=== PATIENT | female | born 1990 | race Hispanic/Latino ===

== ENCOUNTER 2019-12-30 02:21 | Inpatient (IN) | payer MEDICAID ==
[2019-12-30] MEDS ORDERED: PROMETHAZINE 25 MG TAB PO PRN ×2 (03:20→15:58)
[2019-12-30] MEDS ORDERED: ACETAMINOPHEN 325 MG TAB PO PRN ×2 (03:20→15:58)
[2019-12-30] MEDS ORDERED: TERBUTALINE 1 MG/1 ML INJ SUB-Q PRN (03:20)
[2019-12-30] MEDS ORDERED: NALOXONE 0.4 MG/1 ML INJ IV PRN (03:20)
[2019-12-30] MEDS ORDERED: MINERAL OIL 30 ML ORAL LIQD PO PRN (03:20)
[2019-12-30] MEDS ORDERED: LIDOCAINE (2%) 20 MG/1 ML VIAL 20 ML MDV INFILTRATI ONE (03:20)
[2019-12-30] MEDS ORDERED: fentaNYL 100 MCG/2 ML INJ IV PRN (03:20)
[2019-12-30] MEDS ORDERED: BUTORPHANOL 2 MG/1 ML INJ IV PRN ×2 (03:20)
[2019-12-30] MEDS ORDERED: ONDANSETRON 4 MG/2 ML INJ IV PRN ×2 (03:20→15:58)
[2019-12-30] MEDS: LACTATED RINGERS 1,000 ML IV SCH ×3 (03:30→13:53)
[2019-12-30] MEDS ORDERED: miSOPROStol 25 MCG TAB PO SCH (04:00)
[2019-12-30 04:54] LABS: Hematocrit 33.3 % (30.3-42.9); Hemoglobin 11.7 gm/dl (10.1-14.3); Mean Corpuscular HGB Conc 35 % (30-34); Mean Corpuscular Volume 93 fl (79-97); Platelet Count 241 K/mm3 (140-440); Red Cell Distribution Width 13.1 % (13.2-15.2)
--- NOTE | 2019-12-30 06:33 | History and Physical Report ---
History of Present Illness Date of examination: 12/30/19 Date of admission: 12/30/19 03:21 Chief complaint: Water broke History of present illness: Pt is a 29 yo at 37w2d EGA who presents reporting rupture of membranes around 0030 today. She reports positive movement and mild contractions, and denies vaginal bleeding. She has received care with [facility] since 16 weeks EGA. Her course has been complicated by increased risk ONTD. She has a history of cardiac dysrhythmia in a prior . She is GBS negative. Past History Past Medical History: no pertinent history Past Surgical History: denies: section Social history: no significant social history - Obstetrical History Expected Date of Delivery: 01/15/20 Actual Gestation: 37 Week(s) 5 Day(s) : 2 Para: 1 Hx # Term Pregnancies: 1 Number of Living Children: 1 Medications and Allergies Allergies Allergy/AdvReac Type Severity Reaction Status Date / Time No Known Allergies Allergy Verified 12/30/19 03:35 Active Meds: Active Medications Acetaminophen (Tylenol) 650 mg PO Q4H PRN PRN Reason: Pain, Mild (1-3) Butorphanol Tartrate (Stadol) 1 mg IV Q2H PRN PRN Reason: Pain, Moderate(4-6) LABOR PAIN Butorphanol Tartrate (Stadol) 2 mg IV Q2H PRN PRN Reason: Pain , Severe (7-10) Ephedrine Sulfate (Ephedrine Sulfate) 10 mg IV Q2M PRN PRN Reason: Hypotension Fentanyl (Sublimaze) 100 mcg IV Q2H PRN PRN Reason: Pain,Severe (7-10) LABOR PAIN Lactated Ringer's (Lactated Ringers) 1,000 mls @ 125 mls/hr IV DIRECT BECKY Oxytocin/Sodium Chloride (Pitocin/Ns 20 Unit/1000ml Drip) 20 units in 1,000 mls @ 125 mls/hr IV DIRECT BECKY Mineral Oil (Mineral Oil) 30 ml PO QHS PRN PRN Reason: Constipation Misoprostol (Cytotec) 25 mcg PO Q4H BECKY Stop: 12/30/19 16:01 Naloxone HCl (Naloxone) 0.1 mg IV Q2MIN PRN PRN Reason: Res Rate </= 8 or 02 SAT < 92% Ondansetron HCl (Zofran) 4 mg IV Q8H PRN PRN Reason: Nausea And Vomiting Promethazine HCl (Phenergan) 25 mg PO Q6H PRN PRN Reason: Nausea And Vomiting Terbutaline Sulfate (Brethine) 0.25 mg SUB-Q ONCE PRN PRN Reason: Hyperstimulation/Hypertonicity Review of Systems All systems: negative Genitourinary: leakage of fluid, contractions, no vaginal bleeding - Vital Signs Vital signs: Vital Signs Pulse BP Pulse Ox 85 112/71 97 12/30/19 02:58 12/30/19 02:58 12/30/19 02:58 Temp Pulse Resp BP Pulse Ox 98.5 F 75 18 111/61 96 12/30/19 02:59 12/30/19 05:01 12/30/19 02:59 12/30/19 05:01 12/30/19 03:53 - Physical Exam Lungs: Positive: Normal air movement Abdomen: Positive: soft Uterus: Positive: enlarged (gravid) Extremities: Positive: normal - Obstetrical FHR: category 1 Cervical Dilatation: 1 (olga Pablo RN) Cervical Effacement Percentage: 50 station: -3 Uterine Contraction Frequency (min): 4 Uterine Contraction Pattern: Irregular Uterine Tone Measurement Phase: Contraction Uterine Contraction Intensity: Mild Results Result Diagrams: 12/30/19 04:05 Abnormal lab results 12/30/19 Range/Units 04:05 RBC 3.60 L (3.65-5.03) M/mm3 MCH 33 H (28-32) pg MCHC 35 H (30-34) % RDW 13.1 L (13.2-15.2) % All other labs normal. Assessment and Plan A: 29 yo at 37w5d EGA Prelabor rupture of membranes FHT category 1 GBS negative Screen positive ONTD with normal anatomy Considering BTL H/o cardiac dysrhythmia in prior P: Admit to L&D Cervical ripening- low dose Pitocin Anticipate
[2019-12-30] MEDS ORDERED: OXYTOCIN DRIP 30 UNITS/500 ML BAG IV SCH (07:00)
[2019-12-30] MEDS ORDERED: ePHEDrine SULFATE 50 MG/1 ML INJ IV PRN (14:32)
[2019-12-30] MEDS ORDERED: NALOXONE 2 MG/2 ML INJ IV PRN (14:32)
--- NOTE | 2019-12-30 14:33 | Anesthesia Consultation ---
Anesthesia Consult and Med Hx Date of service: 12/30/19 - Airway Anesthetic Teeth Evaluation: Good ROM Head & Neck: Adequate Mental/Hyoid Distance: Adequate Mallampati Class: Class II Intubation Access Assessment: Probably Good - Pulmonary Exam CTA: Yes - Cardiac Exam Cardiac Exam: RRR - Pre-Operative Health Status ASA Pre-Surgery Classification: ASA2 Proposed Anesthetic Plan: Epidural - Pulmonary Hx Asthma: No - Cardiovascular System Hx Hypertension: No - Central Nervous System Hx Seizures: No Hx Psychiatric Problems: No - Endocrine Hx Renal Disease: No Hx Hypothyroidism: No Hx Hyperthyroidism: No - Hematic Hx Anemia: No Hx Sickle Cell Disease: No - Other Systems Hx Alcohol Use: No
--- NOTE | 2019-12-30 14:56 | Progress Note ---
Labor Epidural - Labor Epidural Start Time: 14:39 Stop Time: 14:45 Performed by:: FILIPE DRAPER Procedure: Patient is requesting epidural for labor pain. H&P, and labs reviewed. Procedure explained, questions answered, consent obtained. Patient in sitting position with blood pressure cuff and pulse ox on and working. Timeout performed immediately before start of procedure. Sterile betadine prep/drape. 3 mL 1% lidocaine skin wheal at L[3]-L[4]. 18-gauge Touhy epidural needle advanced to [id number] with saline at [7] cm. Epidural dexmedetomidine [30] mcg administered. Epidural catheter advanced to [12] cm, negative aspiration for blood and csf, negative test dose 3 ml 1.5% lidocaine with epinephrine. Sterile steri-strips and tegaderm applied, followed by tape reinforcement. Patient tolerated procedure well.
[2019-12-30] MEDS ORDERED: fentaNYL-BUPIV 2 MCG/ML-0.125% 200 MCG/100 ML BAG EPIDURAL SCH (15:00)
[2019-12-30] MEDS: ePHEDrine SULFATE 50 MG/1 ML INJ IV PRN ×2 (15:05→15:18)
[2019-12-30] MEDS: OXYTOCIN 20 UNIT/1000ML DRIP 20 UNITS/1,000 ML BAG IV SCH ×2 (15:44→18:29)
[2019-12-30] MEDS ORDERED: WITCH HAZEL/ GLYCERIN PAD TP PRN (15:58)
[2019-12-30] MEDS ORDERED: LANOLIN/ZINC/DIMETHICONE (LANSINOH) 7 GM TP PRN (15:58)
[2019-12-30] MEDS ORDERED: PROMETHAZINE 25 MG RECT SUPP PR PRN (15:58)
[2019-12-30] MEDS ORDERED: MAGNESIUM HYDROXIDE (MOM) ORAL LIQD UDC PO PRN (15:58)
[2019-12-30] MEDS ORDERED: diphenhydrAMINE 25 MG CAP PO PRN (15:58)
--- NOTE | 2019-12-30 15:58 | Procedure Note ---
OB Delivery Note - Delivery Date of Delivery: 12/30/19 Surgeon: CYN CASTILLO Estimated blood loss: 100cc - Vaginal Delivery presentation: vertex Delivery position: OA Intrapartum events: mult. late decelerations Delivery monitor: external FHT, external uterine, internal FHT, internal uterine Route of delivery: Delivery placenta: spontaneous Delivery cord: 3 umbilical vessels Episiotomy: none Delivery laceration: none Anesthesia: epidural Delivery comments: The patient progressed to complete complete +1 and post to deliver a live-born male infant with Apgars of 8 and 9 weight 5 pounds 2 ounces after delivery of the head the shoulders delivered without difficulty. The was bulb suction and placed on the patient's abdomen. Cord clamping was delayed. The c ord was clamped and cut and the infant was then transferred to the warmer for further evaluation. The placenta delivered spontaneously intact with a three- vessel cord. No lacerations were noted. Estimated blood loss of 100 mL - A at 1 minute: 8 at 5 minutes: 9 Infant Gender: Male (Weight 5 pounds 2 ounces)
[2019-12-30] MEDS: IBUPROFEN 600 MG TAB PO SCH (22:19)
[2019-12-31] MEDS: IBUPROFEN 600 MG TAB PO SCH ×3 (04:41→18:04)
[2019-12-31 05:46] LABS: Hematocrit 32.1 % (30.3-42.9); Hemoglobin 11.4 gm/dl (10.1-14.3)
[2019-12-31] MEDS: HYDROcodone/ACETAMINOPHEN 5-325 MG TAB PO PRN ×3 (05:48→19:16)
[2019-12-31] MEDS ORDERED: DIPHtheria,PERTUSSIS(ACELL),TETANUS VACCINE/PF 0.5 ML VIAL IM ONE (06:00)
--- NOTE | 2019-12-31 11:09 | Progress Note ---
Assessment and Plan - Patient Problems (1) Vaginal delivery Current Visit: Yes Status: Acute Plan to address problem: Patient doing well Discharge home Subjective - Subjective Date of service: 12/31/19 Interval history: Patient is doing well. She is without any significant complaints. Patient reports: appetite normal, voiding normally, pain well controlled : doing well Objective - Vital Signs Latest vital signs: Vital Signs Temp Pulse Resp BP Pulse Ox 12/31/19 08:52 97.7 F 76 18 108/64 97 12/31/19 05:48 18 12/31/19 05:41 18 12/31/19 04:41 18 12/31/19 01:06 98.0 F 81 18 104/58 99 12/30/19 23:19 18 12/30/19 22:19 18 12/30/19 20:53 98.6 F 93 H 18 105/66 99 12/30/19 17:27 97.8 F 73 18 97/53 99 12/30/19 17:00 74 96/54 12/30/19 16:59 74 100 12/30/19 16:54 76 99 12/30/19 16:49 72 99 12/30/19 16:45 73 101/55 12/30/19 16:44 76 100 12/30/19 16:39 72 100 12/30/19 16:34 86 100 12/30/19 16:30 75 101/52 12/30/19 16:29 84 99 12/30/19 16:24 86 99 12/30/19 16:19 89 98 12/30/19 16:16 92 H 92 12/30/19 16:14 94 H 98 12/30/19 16:09 89 98 12/30/19 16:04 99 H 98 12/30/19 15:59 104 H 98 12/30/19 15:54 101 H 98 12/30/19 15:49 88 98 12/30/19 15:45 87 118/55 12/30/19 15:44 94 H 98 12/30/19 15:39 93 H 99 12/30/19 15:34 94 H 100 12/30/19 15:29 75 118/58 100 12/30/19 15:27 73 113/55 12/30/19 15:25 75 113/58 12/30/19 15:24 92 H 100 12/30/19 15:23 78 112/57 12/30/19 15:21 87 99/62 12/30/19 15:19 78 98/53 100 12/30/19 15:17 80 102/58 12/30/19 15:15 74 111/63 12/30/19 15:14 75 100 12/30/19 15:13 76 106/57 12/30/19 15:12 71 123/66 12/30/19 15:09 69 130/69 100 12/30/19 15:08 70 124/64 12/30/19 15:05 83 105/63 12/30/19 15:04 79 96 12/30/19 15:03 70 95/53 12/30/19 15:01 71 88/53 12/30/19 14:59 83 100 12/30/19 14:58 75 111/53 12/30/19 14:54 73 100 12/30/19 14:53 98 H 123/84 12/30/19 14:49 77 99 12/30/19 14:48 115 H 158/92 12/30/19 14:44 106 H 100 12/30/19 14:41 70 84 12/30/19 14:39 89 100 12/30/19 14:34 81 100 12/30/19 14:29 80 100 12/30/19 14:24 75 100 12/30/19 14:19 73 100 12/30/19 14:14 72 100 12/30/19 14:09 72 100 12/30/19 14:04 71 100 12/30/19 13:59 72 100 12/30/19 13:54 76 100 12/30/19 13:49 81 100 12/30/19 13:44 80 100 12/30/19 13:39 80 100 12/30/19 13:34 83 100 12/30/19 13:29 93 H 100 12/30/19 13:24 72 100 12/30/19 13:19 83 100 12/30/19 13:14 80 100 12/30/19 13:09 70 100 12/30/19 13:04 72 100 Intake and Output 12/30/19 12/31/19 12/31/19 22:59 06:59 14:59 Intake Total 476.667 360 Balance 476.667 360 Intake: IV 116.667 PITOCin/NS 20 UNIT/1000ML 116.667 DRIP 20 units In 1,000 ml @ 125 mls/hr IV DIRECT BECKY Rx#:[id number] Oral 360 360 Other: Total, Intake Amount 360 240 # Voids Void 1 1 Estimated Blood Loss 100 - Exam Uterus: Present: normal, firm
--- NOTE | 2019-12-31 11:12 | Discharge Summary ---
Providers - Providers Date of Admission: 12/30/19 03:21 Date of discharge: 12/31/19 Attending physician: CAROL VILLEGAS Primary care physician: CAROL VILLEGAS Hospitalization Reason for admission: rupture of membranes Delivery: Discharge diagnosis: IUP at term delivered Hospital course: The patient was admitted for Pitocin augmentation secondary to spontaneously rupture membranes. The patient had a successful vaginal delivery. Her course was uneventful. Condition at discharge: Good Disposition: DC-01 TO HOME OR SELFCARE - Discharge Diagnoses (1) Vaginal delivery Status: Acute Plan - Discharge Medications Prescriptions: Ibuprofen [Motrin] 800 mg PO Q8HR PRN #60 tablet PRN Reason: Pain , Severe (7-10) HYDROcodone/APAP 5-325 [[place]ura [place] 5/325] 1 each PO Q6HR PRN #15 tablet PRN Reason: Pain - Provider Discharge Summary Activity: no sex for 6 weeks, no heavy lifting 4 weeks, no strenuous exercise Diet: routine Instructions: routine Additional instructions: [] Smoking cessation referral if applicable(refer to patient education folder for contact #) [] Refer to [facility] Booklet Call your doctor immediately for: * Fever > 100.5 * Heavy vaginal bleeding ( >1 pad per hour) * Severe persistent headache * Shortness of breath * Reddened, hot, painful area to leg or breast * visit in 4 weeks - Follow up plan
--- NOTE | 2019-12-31 20:03 | Post Anesthesia Evaluation ---
- Post Anesthesia Evaluation Patient Participated: Yes Airway Patent: Yes Stable Respiratory Function: Yes Nausea/Vomiting: No Temp > 96.8F: Yes Pain Manageable: Yes Adequeate Hydration: Yes Anesthesia Complications: No Block Receding Appropriately: Yes
[2020-01-01] MEDS: IBUPROFEN 600 MG TAB PO SCH ×2 (00:10→11:40)
[2020-01-01] MEDS: HYDROcodone/ACETAMINOPHEN 5-325 MG TAB PO PRN ×2 (01:44→07:43)
[2020-01-01 12:52] VITALS: BP 106/65
== END 2020-01-01 12:25 | disposition home or self-care (01) | DRG 775 ==
LOC: TRG 02:21 → APU 02:53 → TRG 03:20 → LD 03:21 → OB 17:31
PROVIDERS: ADMIT Obstetrics & Gynecology; ATTEND Obstetrics & Gynecology
PROC: 10E0XZZ Delivery of Products of Conception, External Approach (ICD-10-PCS; principal; 2019-12-30)
PROC: 3E0R3BZ Introduction of Anesthetic Agent into Spinal Canal, Percutaneous Approach (ICD-10-PCS; 2019-12-30)
PROC: 00HU33Z Insertion of Infusion Device into Spinal Canal, Percutaneous Approach (ICD-10-PCS; 2019-12-30)
PROC: 3E0234Z Introduction of Serum, Toxoid and Vaccine into Muscle, Percutaneous Approach (ICD-10-PCS; 2019-12-31)
DX: O76 Abnormality in fetal heart rate and rhythm complicating labor and delivery (principal); O26.893 Other specified pregnancy related conditions, third trimester; O36.0930 Maternal care for other rhesus isoimmunization, third trimester, not applicable or unspecified; Z3A.37 37 weeks gestation of pregnancy; Z37.0 Single live birth; Z23 Encounter for immunization; Z67.11 Type A blood, Rh negative; Z20.828 Contact with and (suspected) exposure to other viral communicable diseases
CPT/HCPCS: 36415; 85014; 85018; 85027; 85461; 86592; 86850; 86900; 86901; 90471; 90715; G0378; J2590; J2790; J7120; U0003-CS